=== PATIENT | female | born 1940 | race Caucasian/White ===

== ENCOUNTER 2016-12-20 08:44 | Day surgery (SDC) | payer MEDICARE ==
[~2016-12-20] VITALS: Ht 162.6 cm; Wt 60.0 kg
[2016-12-20 10:02] VITALS: BP 145/68; PULSE 78; RESP 20; TEMP 97.7; O2SAT 93
[2016-12-20] MEDS ORDERED: TEMA15CA PO (10:26)
[2016-12-20] MEDS ORDERED: TELM5TAB PO (10:26)
[2016-12-20] MEDS ORDERED: GABA300C5 PO (10:26)
[2016-12-20] MEDS ORDERED: LORA1TAB12 PO (10:26)
[2016-12-20] MEDS ORDERED: HYDR-3583 PO (10:26)
[2016-12-20] MEDS ORDERED: MORP1TAB25 PO (10:26)
[2016-12-20] MEDS ORDERED: AMLO10TA2 PO (10:26)
[2016-12-20 10:46] LABS: AUTOMATED NEUTROPHIL # 3.9 TH/MM3 (1.8-7.7); BASOPHIL % 0.2 % (0.0-2.0); EOSINOPHIL % 0.7 % (0.0-4.0); HEMATOCRIT 42.8 % (35.0-46.0); HEMO FLAGS DIFF FINAL; LYMPH % 31.9 % (9.0-44.0); MEAN CELL VOLUME 90.1 FL (80.0-100.0); MEAN CORPUSCULAR HEMOGLOBIN 29.6 PG (27.0-34.0); MEAN CORPUSCULAR HGB CONC 32.8 % (32.0-36.0); MONO % 5.2 % (0.0-8.0); PLATELET COUNT 183 TH/MM3 (150-450); RED BLOOD COUNT 4.75 MIL/MM3 (4.00-5.30); RED CELL DISTRIBUTION WIDTH 12.2 % (11.6-17.2); WHITE BLOOD COUNT 6.2 TH/MM3 (4.0-11.0)
[2016-12-20 10:54] LABS: APTT (PATIENT) 27.8 SEC (24.3-30.1); PROTHROMBIN TIME - PATIENT 10.8 SEC (9.8-11.6)
[2016-12-20] MEDS ORDERED: SODIUM CHLOR 0.9% 1000 ML INJ 1,000 ML IV SCH (11:00)
[2016-12-20] MEDS ORDERED: LIDOCAINE 1%/EPINEPHrine 1:100,000 SOLN 20 ML VIAL ONE (11:36)
[2016-12-20] MEDS ORDERED: MIDAZOLAM HCL 5 MG/5 ML VIAL ONE (11:57)
[2016-12-20] MEDS ORDERED: fentaNYL CITRATE 250 MCG/5 ML AMP ONE (11:57)
[2016-12-20 12:55] VITALS: BP 131/63; PULSE 76; RESP 18; TEMP 97.5; O2SAT 95
[2016-12-20 13:10] VITALS: BP 143/103; PULSE 87; RESP 18; O2SAT 91
[2016-12-20 13:40] VITALS: BP 130/63; PULSE 75; RESP 18; O2SAT 91
[2016-12-20 14:10] VITALS: BP 142/65; PULSE 78; RESP 16; O2SAT 91
--- NOTE | 2016-12-20 14:33 | RADRPT ---
EXAM DATE/TIME: 12/20/2016 12:21 [facility] COMPARISON: No previous studies available for comparison. INDICATIONS : Pelvic mass. SEDATION TIME: 30 minutes BIOPSY SITE: Pelvis MEDICATION(S): 1.) 3 mg midazolam (Versed) IV 2.) 150 mcg fentanyl (Sublimaze) IV DEVICE(S): 1.) 18 gauge BioPince needle MEDICAL HISTORY : None. SURGICAL HISTORY : Cholecystectomy Hysterectomy. ENCOUNTER: Initial ACUITY: 1 day PAIN SCORE: 0/10 LOCATION: Pelvis A total of one core specimen(s) were obtained and sent to the laboratory for pathologic evaluation. PROCEDURE: 1. CT guided pelvic biopsy. 2. Conscious sedation with continuous EKG and oximetry monitoring. 3. EKG and oximetry remained stable throughout the procedure. Prior to the procedure informed consent was obtained. Any appropriate prior imaging studies were rev iewed. Using automated exposure control and adjustment of the mA and/or kV according to patient size, radiat ion dose was kept as low as reasonably achievable to obtain optimal diagnostic quality images. The site was prepped in a sterile fashion. Full sterile technique was used, including cap, mask, sabrina rile gloves and gown and a large sterile sheet. Hand hygiene and 2% chlorhexidine and/or betadine/al cohol prep was utilized per protocol for cutaneous antisepsis. The skin and subcutaneous tissues wer e infiltrated with local anesthetic solution. Under CT guidance 18 gauge core was obtained and submitted for pathologic evaluation. The patient tolerated the procedure well and there were no complications. The patient was returned to the Radiology Outpatient Unit in stable condition. CONCLUSION: Uncomplicated CT guided biopsy. Heladio Singh MD FACR on December 20, 2016 at 14:31 Board Certified Radiologist. This report was verified electronically.
[2017-01-18] MEDS ORDERED: MAGN500T4 PO (14:18)
[2017-01-18] MEDS ORDERED: MULT1CHW PO (14:18)
[2017-01-18] MEDS ORDERED: VITA100036 PO (14:18)
[2017-01-18] MEDS ORDERED: CALCTAB80 PO (14:18)
[2017-01-18] MEDS ORDERED: LACTCAP8 PO (14:18)
[2017-01-18] MEDS ORDERED: [UNRECOGNIZED DRUG - CODE] PO (14:18)
[2017-01-18] MEDS ORDERED: VITA500T83 PO (14:18)
[2017-01-18] MEDS ORDERED: MILK1CAP PO (14:18)
[2017-01-18] MEDS ORDERED: [UNRECOGNIZED DRUG - OTHER] PO (14:18)
== END 2016-12-20 14:50 | disposition home or self-care (01) ==
LOC: HRAD 08:44 → HRIP 08:45 → HRAD 14:50
PROVIDERS: ATTEND Internal Medicine
DX: R19.00 Intra-abdominal and pelvic swelling, mass and lump, unspecified site (principal); I10 Essential (primary) hypertension
CPT/HCPCS: 49180; 77012; 85025; 85610; 85730; 88305; 88333; 88341; 88342; 99152; J2250; J3010; J7030

== ENCOUNTER → 2017-01-18 | Outpatient (CLI) | payer MEDICARE ==
[~2017-01-18] MED LIST: AMLO10TA2 PO; CALCTAB80 PO; GABA100C4 PO; GABA300C5 PO; HYDR-3583 PO; LACTCAP8 PO; LORA1TAB12 PO; MAGN500T4 PO; MILK1CAP PO; MILK500C2 PO; MORP1TAB25 PO; MULT1CHW PO; OXYC1TAB63 PO; SM M250T PO; TELM5TAB PO; TEMA15CA PO; VITA100036 PO; VITA500T83 PO; [UNRECOGNIZED DRUG - CODE] PO; [UNRECOGNIZED DRUG - OTHER] PO
[2017-01-18 14:04] LABS: BASOPHIL % 0.3 % (0.0-2.0); EOSINOPHIL % 0.6 % (0.0-4.0); HEMATOCRIT 39.4 % (35.0-46.0); HEMO FLAGS DIFF FINAL; LYMPH % 28.5 % (9.0-44.0); LYMPHOCYTE # 1.3 TH/MM3 (1.0-4.8); MEAN CELL VOLUME 91.9 FL (80.0-100.0); MEAN CORPUSCULAR HEMOGLOBIN 30.1 PG (27.0-34.0); MEAN CORPUSCULAR HGB CONC 32.8 % (32.0-36.0); MONO % 5.9 % (0.0-8.0); NEUT % 64.7 % (16.0-70.0); PLATELET COUNT 192 TH/MM3 (150-450); RED BLOOD COUNT 4.28 MIL/MM3 (4.00-5.30); RED CELL DISTRIBUTION WIDTH 13.3 % (11.6-17.2); WHITE BLOOD COUNT 4.7 TH/MM3 (4.0-11.0)
[2017-01-18 14:12] LABS: APTT (PATIENT) 27.9 SEC (24.3-30.1); PROTHROMBIN TIME - PATIENT 10.7 SEC (9.8-11.6)
[2017-01-18 14:31] LABS: ANION GAP 4 MEQ/L (5-15); AST (GOT) 24 U/L (15-37); BLOOD UREA NITROGEN 14 MG/DL (7-18); CHLORIDE 109 MEQ/L (98-107); GLOMERULAR FILTRATION RATE 89 ML/MIN (>89); GLUCOSE,FASTING 105 MG/DL (74-99); POTASSIUM 4.2 MEQ/L (3.5-5.1); SODIUM (NA) 142 MEQ/L (136-145)
[2017-01-18 14:34] LABS: ALKALINE PHOSPHATASE 78 U/L (45-117); ALT (GPT) 16 U/L (10-53); TOTAL BILIRUBIN ADULT 0.9 MG/DL (0.2-1.0)
--- NOTE | 2017-01-18 15:16 | RADRPT ---
EXAM DATE/TIME: 01/18/2017 14:40 [facility] COMPARISON: No previous studies available for comparison. INDICATIONS : Evaluate for pneumonia, pneumothorax, and communicable disease. Pre op for abdominal surgery. MEDICAL HISTORY : None. SURGICAL HISTORY : None. ENCOUNTER: Initial ACUITY: 1 day PAIN SCORE: 0/10 LOCATION: Bilateral chest FINDINGS: PA and lateral views of the chest demonstrate the lungs to be symmetrically aerated without evidence of mass, infiltrate or effusion. The lungs are hyperinflated bilaterally. The cardiomediastinal conto urs are unremarkable. Osseous structures are intact. Scoliotic curvature. CONCLUSION: Hyperinflation suggesting COPD. Brandyn Cedillo Jr., MD on January 18, 2017 at 15:14 Board Certified Radiologist. This report was verified electronically.
--- NOTE | 2017-01-19 15:44 | EKG ---
Date Performed: 01/18/2017 Time Performed: 13:47:36 PTAGE: 76 years EKG: Sinus rhythm RIGHT BUNDLE BRANCH BLOCK ABNORMAL ECG NO PREVIOUS TRACING DOCTOR: Dusty Spence Interpretating Date/Time 01/19/2017 15:37:17
== END ==
LOC: CPRE 13:26
PROVIDERS: ATTEND Obstetrics & Gynecology Gynecologic Oncology
DX: Z01.812 Encounter for preprocedural laboratory examination (principal); Z01.810 Encounter for preprocedural cardiovascular examination; Z01.811 Encounter for preprocedural respiratory examination; R19.09 Other intra-abdominal and pelvic swelling, mass and lump; I45.10 Unspecified right bundle-branch block
CPT/HCPCS: 36415; 71020; 80053; 85025; 85610; 85730; 93005

== ENCOUNTER 2017-02-05 14:14 | Inpatient (IN) | payer MEDICARE ==
[~2017-02-05] VITALS: Ht 163.8 cm; Wt 61.5 kg
[~2017-02-05 14:14] MED LIST changes: -GABA100C4 PO; -GABA300C5 PO; -MAGN500T4 PO; -MILK1CAP PO; -MILK500C2 PO; -OXYC1TAB63 PO; -SM M250T PO; -[UNRECOGNIZED DRUG - CODE] PO
[2017-02-09] MEDS ORDERED: GABA100C4 PO (12:58)
[2017-02-09] MEDS ORDERED: MILK500C2 PO (12:58)
[2017-02-09] MEDS ORDERED: SM M250T PO (12:58)
[2017-02-13] MEDS ORDERED: SODIUM CHLORID 0.9% 500 ML IV PRN (09:00)
[2017-02-13] MEDS ORDERED: LACTATED RINGER'S 1000 ML IV PRN (09:00)
[2017-02-13] MEDS ORDERED: METOPROLOL TARTRATE 25 MG TAB PO PRN (09:00)
[2017-02-13] MEDS ORDERED: CHLORHEXIDINE GLUCONATE 2 % 1 PACK (2 CLOTHS) TOPICAL PRN (09:00)
[2017-02-13] MEDS ORDERED: POVIDONE IODINE 5% (ANTISEPSIS KIT) 4 APPLICATIONS EACH NARE PRN (09:00)
[2017-02-13] MEDS ORDERED: HEPARIN SODIUM - SQ 10,000 UNITS/ML VIAL SQ SCH (09:00)
[2017-02-13] MEDS ORDERED: ceFAZolin 1,000 MG/NS 100 ML IV SCH ×2 (09:00)
[2017-02-13] MEDS ORDERED: INSULIN HUMAN REGULAR 1,000 UNITS/10 ML VIAL SQ PRN (09:00)
[2017-02-13 09:26] VITALS: BP 121/54; PULSE 82; RESP 20; TEMP 99.3; O2SAT 93
[2017-02-13] MEDS ORDERED: FAMOTIDINE 20 MG/2 ML VIAL ONE (10:40)
[2017-02-13] MEDS ORDERED: ONDANSETRON HCL 4 MG/2 ML VIAL IV PUSH ONE (12:00)
[2017-02-13] MEDS ORDERED: LACTATED RINGER'S 1000 ML INJ 2,000 ML IV ONE (12:00)
[2017-02-13] MEDS ORDERED: NEOSTIGMINE 3 MG/3 ML SYR IV ONE (12:00)
[2017-02-13] MEDS ORDERED: PROPOFOL 200 MG/20 ML AMP IV ONE (12:00)
[2017-02-13] MEDS ORDERED: SODIUM CHLORIDE 0.9% FLUSH 10 ML FLUSH IV FLUSH PRN (14:15)
[2017-02-13] MEDS ORDERED: LORazepam 0.5 MG TAB PO PRN (14:15)
[2017-02-13] MEDS ORDERED: ONDANSETRON HCL 4 MG/2 ML VIAL IVP PRN (14:15)
[2017-02-13] MEDS ORDERED: NALOXONE HCL 0.4 MG/ML AMP IV PRN (14:15)
[2017-02-13] MEDS ORDERED: diphenhydrAMINE HCL 25 MG CAP PO PRN (14:15)
[2017-02-13] MEDS ORDERED: oxyCODONE/ACETAMINOPHEN 5 MG/325 MG TAB PO PRN (14:15)
[2017-02-13] MEDS ORDERED: *HYDROmorphone PF 1 MG VIAL PERIprocedural Use ONLY ONE ×2 (14:24→14:49)
[2017-02-13] MEDS ORDERED: DO NOT ADM ANY ANTICOAGULANT DRUGS PRN (14:26)
[2017-02-13] MEDS ORDERED: HYDROmorphone HCL PF 1 MG/ML VIAL ONE (14:35)
[2017-02-13] MEDS ORDERED: MIDAZOLAM HCL 2 MG/2 ML VIAL ONE (14:36)
[2017-02-13] MEDS ORDERED: fentaNYL CITRATE 250 MCG/5 ML AMP ONE (14:37)
[2017-02-13] MEDS ORDERED: MORPHINE SULFATE 4 MG/ML INJ ONE (14:37)
[2017-02-13] MEDS: KETOROLAC TROMETHAMINE 30 MG/ML (IVP) VIAL IVP SCH ×2 (15:00→20:04)
[2017-02-13] MEDS: D5-1/2 NS + KCL 20 MEQ INJ 1,000 ML IV SCH (15:00)
[2017-02-13] MEDS: MORPHINE SULFATE 30 MG/30 ML PCA IV SCH (15:06)
[2017-02-13 16:00] VITALS: BP 144/65; PULSE 99; RESP 18; TEMP 96.3; O2SAT 95
[2017-02-13] MEDS: GABAPENTIN 300 MG CAP PO SCH (17:11)
[2017-02-13 20:00] VITALS: BP 148/64; PULSE 85; RESP 20; TEMP 97.8; O2SAT 95
[2017-02-13] MEDS: SODIUM CHLORIDE 0.9% FLUSH 10 ML FLUSH IV FLUSH SCH (20:04)
[2017-02-13] MEDS: PCA - TOTAL MG MORPHINE DELIVERED PER SHIFT SCH (22:00)
[2017-02-13] MEDS: TEMAZEPAM 15 MG CAP PO PRN (22:05)
[2017-02-14] VITALS (8 sets, daily range): BP systolic 100–120; BP diastolic 46–60; PULSE 79–92; RESP 16–20; TEMP 97–99.1; O2SAT 92–97
[2017-02-14] MEDS: D5-1/2 NS + KCL 20 MEQ INJ 1,000 ML IV SCH ×3 (01:19→22:25)
[2017-02-14] MEDS: KETOROLAC TROMETHAMINE 30 MG/ML (IVP) VIAL IVP SCH ×4 (03:16→20:28)
[2017-02-14] MEDS: PCA - TOTAL MG MORPHINE DELIVERED PER SHIFT SCH ×3 (06:00→22:22)
[2017-02-14] MEDS: MORPHINE SULFATE 30 MG/30 ML PCA IV SCH ×2 (07:21→18:30)
--- NOTE | 2017-02-14 07:41 | PD.ONC.PN ---
Subjective Subjective Remarks POD #1 pt states that she was able to rest last night pain /10 with RN at bedside refilling her BOWLING BALL ASSEMBLER pump pt still getting scheduled Toradol denies any N/V IS reordered for bedside Objective Data Date Time Temp Pulse Resp B/P Pulse Ox O2 Delivery O2 Flow Rate FiO2 02/14/17 07:21 18 02/14/17 06:00 17 02/14/17 04:00 99.1 91 20 115/57 94 02/14/17 00:00 97.0 92 20 120/59 94 02/13/17 22:00 18 02/13/17 20:00 97.8 85 20 148/64 95 02/13/17 17:12 16 02/13/17 16:00 96.3 99 18 144/65 95 02/13/17 15:30 99 16 138/63 95 Nasal Cannula 2 02/13/17 15:06 16 02/13/17 15:00 91 16 141/66 98 Nasal Cannula 3 02/13/17 14:45 103 16 151/71 97 Nasal Cannula 3 02/13/17 14:30 93 16 156/69 97 Nasal Cannula 3 02/13/17 14:22 97.5 111 16 175/81 95 Nasal Cannula 3 02/13/17 09:26 99.3 82 20 121/54 93 Administered Medications Medications (Trade) Dose Ordered Sig/Daniel Route PRN Reason Start Time Stop Time Status Last Admin Dose Admin Gabapentin (Neurontin) 300 mg TID PO 02/13/17 18:00 02/13/17 17:11 Temazepam 15 mg 15 mg HS PRN PO INSOMNIA 02/13/17 21:00 02/13/17 22:05 Potassium Chloride/Dextrose/ Sod Cl (D5-1/2 NS + KCl 20 Meq Inj) 1,000 ml @ 100 mls/hr Q10H IV 02/13/17 15:00 02/14/17 01:19 Sodium Chloride (NS Flush) 2 ml BID IV FLUSH 02/13/17 21:00 02/13/17 20:04 Ketorolac Tromethamine (Toradol Inj) 15 mg Q6H IVP 02/13/17 15:00 02/16/17 09:01 02/14/17 03:16 Ondansetron HCl (Zofran Inj) 4 mg Q6H PRN IVP NAUSEA OR VOMITING 02/13/17 14:15 02/13/17 15:46 Lorazepam (Ativan) 0.5 mg Q8H PRN PO ANXIETY 02/13/17 14:15 02/13/17 17:11 Morphine Sulfate (Morphine 1 Mg/ ml BOWLING BALL ASSEMBLER) 30 mg UNSCH IV 02/13/17 14:15 02/14/17 07:21 BOWLING BALL ASSEMBLER Dosage Infused (Pha) 1 Q8HR .XX 02/13/17 22:00 02/14/17 06:00 Objective Remarks GENERAL: Well-nourished, well-developed patient. SKIN: Warm and dry. HEAD: Normocephalic. EYES: No scleral icterus. No injection or drainage. CARDIOVASCULAR: Regular rate and rhythm without murmurs. RESPIRATORY: Breath sounds equal bilaterally. No accessory muscle use. GASTROINTESTINAL: Abdomen soft, dressing is c/d/i EXTREMITIES: teds and scds MUSCULOSKELETAL: Adequate muscle tone. NEUROLOGICAL: No obvious focal deficit. Awake, alert, and oriented x3. PSYCHIATRIC: Appropriate mood and affect; insight and judgment normal. Assessment/Plan Problem List: (1) Adenocarcinoma Status: Acute Plan: POD #2 S/P Xlap with BSO, omentectomy and resection of pelvic masses final pathology is pending (2) Post-op pain Status: Acute Plan: BOWLING BALL ASSEMBLER pump scheduled Toradol (3) Postoperative state Status: Acute Plan: will ADAT OOB to chair today IS to bedside (reordered) D/C gagandeep on POD #2 labs pending Bethany Vargas February 14, 2017 07:41
[2017-02-14] MEDS: GABAPENTIN 300 MG CAP PO SCH ×3 (08:48→18:21)
[2017-02-14] MEDS: LOSARTAN 25 MG TAB PO SCH (08:59)
[2017-02-14 09:38] LABS: AUTOMATED NEUTROPHIL # 4.1 TH/MM3 (1.8-7.7); BASOPHIL % 0.1 % (0.0-2.0); EOSINOPHIL % 0.2 % (0.0-4.0); HEMATOCRIT 29.1 % (35.0-46.0); HEMO FLAGS DIFF FINAL; LYMPH % 18.7 % (9.0-44.0); LYMPHOCYTE # 1.1 TH/MM3 (1.0-4.8); MEAN CELL VOLUME 91.3 FL (80.0-100.0); MEAN CORPUSCULAR HEMOGLOBIN 29.9 PG (27.0-34.0); MEAN CORPUSCULAR HGB CONC 32.8 % (32.0-36.0); MONO % 10.6 % (0.0-8.0); NEUT % 70.4 % (16.0-70.0); PLATELET COUNT 188 TH/MM3 (150-450); RED BLOOD COUNT 3.19 MIL/MM3 (4.00-5.30); RED CELL DISTRIBUTION WIDTH 12.8 % (11.6-17.2); WHITE BLOOD COUNT 5.8 TH/MM3 (4.0-11.0)
--- NOTE | 2017-02-14 10:06 | MP ---
cc: KATE ALEXANDER M.D., KELLY L. MD DATE OF SURGERY: 02/13/2017 PREOPERATIVE DIAGNOSIS 1. Large complex pelvic mass, omental tumor, carcinomatous implants and ascites, all suspicious of ovarian cancer. 2. Status post previous hysterectomy. POSTOPERATIVE DIAGNOSIS 1. Large complex pelvic mass, omental tumor, carcinomatous implants and ascites, all suspicious of ovarian cancer. 2. Status post previous hysterectomy. 3. Extensive intrapelvic, intraperitoneal adhesions. PROCEDURE Exploratory laparotomy, bilateral salpingo-oophorectomy (en bloc resection of bilateral ovarian tumors), bilateral ureterolysis, omentectomy, tumor debulking. SURGEON Rosi Del Rio. AFTER SCHOOL COORDINATOR [place] Manager [employer]. ANESTHESIA General endotracheal. ESTIMATED BLOOD LOSS 500 cc. ASCITES 2100 cc including bloody ascites. IV FLUIDS 3000 cc. URINE OUTPUT 350 cc. HISTORY A 76-year-old female found on exam and imaging and related symptomatology, abdominal distension mostly in the lower mid abdomen and pelvis, large central complex pelvic mass. The omentum is thickened, appears to be replaced with tumor. There is some nodularity in the peritoneal cavity and ascites. Elevated CA-125 of approximately 2100. All suggestive of ovarian cancer. She was seen and counseled in our office, counseled on multiple occasions via phone, and is seen again in the pre-op holding area where the suspicion for ovarian cancer is discussed. Again it is emphasized that if in fact cancer is confirmed treatment is a combination of surgery and chemotherapy. She continues to state that under no circumstances would she take chemotherapy. Furthermore, given her [employer] bre under no circumstances would she take any blood or blood products. We had a series of discussions regarding the risks of this decision-making and that the aggressive nature of surgery may be reduced in an effort to minimize blood loss. She understands that with ovarian cancer the chance of blood loss is significant. She understands the potential morbidity and even mortality associated with her decision to not take blood products. She understands and wishes to move forward. FINDINGS Upon exploration of the peritoneal cavity, the pelvis is replaced with tumor. It is difficult to identify any obvious ovarian or fallopian tube tissue. The uterus and cervix are surgically absent. The large complex mass occupies the central pelvis and extends from sidewall to sidewall with extrinsic pressure on the bowel, bladder and surrounding structures. There is approximately 2.5 to 3 liters of ascites some of which in the abdomen is bloody. The infracolic omentum is completely replaced with solid tumor. There are some implants in the gastrocolic ligament. The small bowel mesentery has some small diffuse tumor implants. The diaphragm overlying the liver has implants of tumor. 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 At the conclusion of the case the vast majority of tumor had been resected. There persisted, however, implants on the diaphragm and peritoneum, and a nodule near the splenic hilum and near the hepatic edge of approximately 1 cm greatest dimension plus multifocal smaller implants ranging from 2-5 mm throughout the mesentery and surface of the small bowel. STATEMENT OF COMPLEXITY The complexly of this case was significantly increased due to the extensive adhesions. A significant amount of time was spent lysing adhesions, gaining safe access to the pelvis and peritoneal cavity, accomplishing surgical objectives and restoring normal anatomy. Modifier should be applied accordingly. DETAILS OF PROCEDURE The patient was taken to the operating room and placed in dorsal lithotomy position. After general endotracheal anesthesia was administered a timeout was undertaken. The patient was identified by sight recognition and hospital ID [email or web address], and the proposed procedure was reviewed and confirmed. She was carefully positioned in Anirudh stirrups. Her arms were secured out to the sides. She was prepped and draped in sterile fashion. A Girard catheter was placed in the bladder and orogastric tube placed in the stomach on suction. After being draped in sterile fashion, a midline vertical incision was made from the umbilicus down to the symphysis, carried down to the level of the fascia. The fascia was entered. The rectus muscles were in the midline and the peritoneal cavity was entered. A large volume of ascites was present which was suctioned. Sharp dissection was used to free adhesions between the tumor and the anterior abdominal wall as well as from the omental tumor and the anterior abdominal wall to mobilize loops of bowel and to extend the peritoneal incision the length of the skin incision. The anatomy was explored to the extent possible and the first objective was to see if the central pelvic tumor was resectable. The thickened peritoneum and size of the tumor obscured anatomy but the left round ligament was able to be identified, doubly suture ligated and transected. The anterior and portion leafs of the broad ligament were opened. Similarly on the right side the right round ligament was able to be identified, doubly suture ligated and transected, and the anterior and posterior leafs of the broad ligament were opened. It was still due to the size of the tumor difficult to get retroperitoneal and identify structures. There was some fluid leaking from the fluid component of the mass which helped decrease the pressure such that dissection along the left side now would allow identification of the left ureter and the left gonadal vessels. With a right angle clamp, sharp dissection and retraction were able to free the ureter along its course in the pelvis and to free the attachments from the posterolateral aspect of the mass and allow isolation of the infundibulopelvic ligament. The infundibulopelvic ligament was isolated. The intervening peritoneum was opened. The infundibulopelvic ligament was doubly clamped, cut and doubly suture ligated. Sharp dissection and cautery dissection with some blunt dissection were all used to help mobilize the tumor fixed in the posterior cul-de-sac and to free it from its attachments overlying the bladder mucosa until the tumor from the left side could be mobilized. The tumor was contiguous with tumor arising from the right side such that it was impossible to delineate where any normal ovarian tissue or when one tumor ended and the other one started, but clearly both adnexa were completely replaced with tumor and fused as a central complex pelvic mass. Now some additional mobility was gained by freeing the left side such that the right retroperitoneum could be further explored. The right ureter was identified. Similarly a right angle clamp and sharp dissection was used to mobilize the ureter and free it from posterolateral attachment to the right side of the mass as additional adhesions were lysed and the mass was further mobilized allowing identification and isolation of the gonadal vessels. The infundibulopelvic ligament was isolated. The intervening peritoneum was opened. The infundibulopelvic ligament was then doubly clamped, cut and suture ligated. Additional dissection was carried out laterally, posteriorly and distally until the residual utero-ovarian ligament was isolated where it was clamped, cut and suture ligated thereby freeing the pelvic tumor which was sent en bloc to the pathologist for frozen section analysis, showing a high-grade adenocarcinoma. A lap pad was placed in the pelvis to assist in hemostasis. Attention was directed toward the abdomen. There was mobility of the transverse colon that allowed it to be brought down within the surgical field without need to extend the incision. A window was available between the transverse colon and the central portion of the omental tumor. Vascular attachments were isolated, clamped, cut and suture ligated with 2-0 Vicryl sutures and then the dissection was continued along the transverse colon up toward the hepatic flexure carried out in a similar fashion. Nonvascular attachments were taken down with sharp dissection. Vascular attachments isolated, clamped, cut and suture ligated in a stepwise fashion until the right and central portion of the omental tumor had been from the transverse colon. Continuation was carried in the dissection now toward the splenic flexure. Nonvascular attachments were taken down with cautery or sharp dissection. Vascular attachments were isolated, clamped, cut and suture ligated with 2-0 Vicryl sutures. With retraction I continued the dissection toward the splenic flexure until all tumor that was felt safely resectable had been removed. It is noted that in dissection a portion of the gastrocolic ligament was also isolated, clamped, cut and suture ligated to remove tumor during this dissection, and this large tumor that had replaced the omentum was sent for permanent histopathologic analysis. Now review and inspection of the anatomy revealed findings as described above. It was felt that all reasonable surgical objectives in this individual had been completed in that any additional dissection of small volume tumor was felt to quite possibly be associated with morbidity that exceeded benefit, and again postoperatively the importance of chemotherapy will be emphasized to address the remaining disease. The pelvis and abdomen were thoroughly irrigated. Small bleeders were rendered hemostatic with bipolar cautery. The pelvis was re-inspected. The lap pads were removed. Visual and manual inspection reviewed the anatomy, confirmed there were no remaining foreign objects in the peritoneal cavity and preliminary counts were correct. Small bleeders in the pelvis were rendered hemostatic with 3-0 Vicryl suture. The ureters were inspected and isolated. There was good peristalsis of both ureters bilaterally without compromise and satisfactory hemostasis except for generalized oozing from the tumor bed which was addressed with Harlan hemostatic agent and Surgicel in the pelvis and across the transverse colon where the tumor had been resected. Attention was directed toward closing. The abdominal wall was closed with a 0 looped PDS starting at the apices of the incision in a running modified Smead-Patel closure. The sutures met in the midpoint where they were tied securely and the suture knot was inverted and buried below the fascia. The subcutaneous tissue was irrigated. Domi's fascia was re-approximated with 2-0 Vicryl sutures interrupted and then the skin edges were closed with a 3-0 Monocryl running subcuticular. Steri-Strips, dry sterile dressing and paper tape were used over the abdominal incision. Final counts were correct. She was returned to dorsal supine position and was pending reversal of anesthesia when I left the operating room to precede her to the post-anesthesia care unit. MD JAYLA Maldonado/ANAM /8:28 AM /9:40 AM
[2017-02-14 10:52] LABS: POTASSIUM 4.4 MEQ/L (3.5-5.1)
[2017-02-14 11:35] LABS: BICARBONATE 23.1 MEQ/L (21.0-32.0)
[2017-02-14 12:00] LABS: CALCIUM-PROTEIN CORRECTED 8.8 MG/DL (8.5-10.1)
[2017-02-14] MEDS: SODIUM CHLORIDE 0.9% FLUSH 10 ML FLUSH IV FLUSH SCH ×2 (12:58→20:32)
[2017-02-14] MEDS: TEMAZEPAM 15 MG CAP PO PRN (22:22)
[2017-02-15] VITALS (8 sets, daily range): BP systolic 95–124; BP diastolic 46–59; PULSE 74–95; RESP 16–20; TEMP 96.5–99; O2SAT 90–95
[2017-02-15] MEDS: KETOROLAC TROMETHAMINE 30 MG/ML (IVP) VIAL IVP SCH ×4 (03:00→21:00)
[2017-02-15] MEDS: PCA - TOTAL MG MORPHINE DELIVERED PER SHIFT SCH (06:00)
[2017-02-15] MEDS: oxyCODONE/ACETAMINOPHEN 5 MG/325 MG TAB PO PRN ×3 (07:12→21:31)
--- NOTE | 2017-02-15 08:06 | HHI.FF ---
Face to Face Verification Diagnosis: (1) Adenocarcinoma (2) Postoperative state Physical Therapy Order: Evaluate and Treat Occupational Therapy Order: Evaluate and Treat, Improve ADL Home Health Nursing Order: Wound care and dressing changes Instructions: she is s/p X Lap for BSO and resection of pelvic mass. Home Health Aide Order: To Assist In: Bathing and personal care I have seen patient Kya Ewing on 02/15/17. My clinical findings support the need for the requested home health care services because: Limited ability to care for self High risk of falls I certify that my clinical findings support that this patient is homebound because: Post-op weakness Bethany Vargas Feb 15, 2017 08:05
--- NOTE | 2017-02-15 08:26 | PD.ONC.PN ---
Subjective Subjective Remarks POD #3 pt sitting up in chair donis d/c'd and pt has been up to urinate IVF and CRYSTALLIZER OPERATOR have been d/cd she is currently on oral pain meds and they are working to help control her pain pt would like to arrange for HH, she has a at home but she states he can not help her a lot. Objective Data Date Time Temp Pulse Resp B/P Pulse Ox O2 Delivery O2 Flow Rate FiO2 02/15/17 06:00 18 02/15/17 04:00 99.0 95 16 97/54 94 02/15/17 00:17 97.6 79 16 95/46 95 02/14/17 22:22 18 02/14/17 20:00 97.6 87 16 106/46 95 02/14/17 19:30 92 Nasal Cannula 2.00 02/14/17 18:37 18 02/14/17 18:30 18 02/14/17 16:00 98.8 81 18 100/52 95 02/14/17 15:29 18 02/14/17 14:00 18 02/14/17 12:00 97.5 81 18 101/49 95 02/14/17 09:59 97 02/15/17 02/15/17 02/15/17 07:00 15:00 23:00 Intake Total 3996 ml Output Total 1100 ml Balance 2896 ml Result Diagram: 02/14/17 0551 02/14/17 0551 Administered Medications Medications (Trade) Dose Ordered Sig/Daniel Route PRN Reason Start Time Stop Time Status Last Admin Dose Admin Amlodipine Besylate (Norvasc) 10 mg DAILY PO 02/14/17 09:00 02/14/17 08:48 Gabapentin (Neurontin) 300 mg TID PO 02/13/17 18:00 02/14/17 18:21 Temazepam (Restoril) 15 mg HS PRN PO INSOMNIA 02/13/17 21:00 02/14/17 22:22 Losartan Potassium 25 mg 25 mg DAILY PO 02/14/17 09:00 02/14/17 08:59 Potassium Chloride/Dextrose/ Sod Cl (D5-1/2 NS + KCl 20 Meq Inj) 1,000 ml @ 100 mls/hr Q10H IV 02/13/17 15:00 02/14/17 22:25 Sodium Chloride (NS Flush) 2 ml BID IV FLUSH 02/13/17 21:00 02/14/17 20:32 Ketorolac Tromethamine (Toradol Inj) 15 mg Q6H IVP 02/13/17 15:00 02/16/17 09:01 02/15/17 03:00 Oxycodone/ Acetaminophen (Percocet 5-325 Mg) 2 tab Q4H PRN PO PAIN SCALE 6 TO 10 02/13/17 14:15 02/15/17 07:12 Ondansetron HCl (Zofran Inj) 4 mg Q6H PRN IVP NAUSEA OR VOMITING 02/13/17 14:15 02/13/17 15:46 Lorazepam (Ativan) 0.5 mg Q8H PRN PO ANXIETY 02/13/17 14:15 02/13/17 17:11 Morphine Sulfate (Morphine 1 Mg/ ml CRYSTALLIZER OPERATOR) 30 mg UNSCH IV 02/13/17 14:15 02/14/17 18:30 CRYSTALLIZER OPERATOR Dosage Infused (Pha) 1 Q8HR .XX 02/13/17 22:00 02/15/17 06:00 Objective Remarks GENERAL: Well-nourished, well-developed patient. SKIN: Warm and dry. HEAD: Normocephalic. EYES: No scleral icterus. No injection or drainage. CARDIOVASCULAR: Regular rate and rhythm without murmurs. RESPIRATORY: Breath sounds equal bilaterally. No accessory muscle use. GASTROINTESTINAL: Abdomen soft, dressing c/d/i EXTREMITIES: No edema, TEDs MUSCULOSKELETAL: Adequate muscle tone. NEUROLOGICAL: No obvious focal deficit. Awake, alert, and oriented x3. PSYCHIATRIC: Appropriate mood and affect; insight and judgment normal. Assessment/Plan Problem List: (1) Adenocarcinoma Status: Acute Plan: POD #3 S/P Xlap with BSO, omentectomy and resection of pelvic masses final pathology is pending (2) Post-op pain Status: Acute Plan: CRYSTALLIZER OPERATOR pump d/c'd changed to oral pain meds (3) Postoperative state Status: Acute Plan: donis, IVF and CRYSTALLIZER OPERATOR have been stopped will consult case management to arrange HH to help with wound care, and ADLs. +urination and is OOB to chair pt will be d/c'd home in morning ADAT Attending Statement discussed with Dr. Del Rio and he is in agreement with plan of care Bethany Vargas Feb 15, 2017 08:26
[2017-02-15] MEDS: SODIUM CHLORIDE 0.9% FLUSH 10 ML FLUSH IV FLUSH SCH ×2 (09:00→21:01)
[2017-02-15] MEDS: LOSARTAN 25 MG TAB PO SCH (09:00)
[2017-02-15] MEDS: GABAPENTIN 300 MG CAP PO SCH ×3 (09:06→16:24)
[2017-02-15] MEDS: TEMAZEPAM 15 MG CAP PO PRN (21:01)
[2017-02-16] VITALS: BP 101/57; PULSE 75; RESP 16; TEMP 97.4; O2SAT 94
[2017-02-16 01:27] VITALS: O2SAT 92
[2017-02-16] MEDS: oxyCODONE/ACETAMINOPHEN 5 MG/325 MG TAB PO PRN ×3 (02:52→11:19)
[2017-02-16] MEDS: KETOROLAC TROMETHAMINE 30 MG/ML (IVP) VIAL IVP SCH ×2 (02:53→08:46)
[2017-02-16 04:00] VITALS: BP 100/62; PULSE 85; RESP 18; TEMP 98.1; O2SAT 93
[2017-02-16] MEDS ORDERED: OXYC1TAB63 PO (06:56)
[2017-02-16 08:44] VITALS: BP 113/54; PULSE 71; RESP 20; TEMP 97.5; O2SAT 91
[2017-02-16] MEDS: LOSARTAN 25 MG TAB PO SCH (08:45)
[2017-02-16] MEDS: GABAPENTIN 300 MG CAP PO SCH (08:45)
[2017-02-16] MEDS: SODIUM CHLORIDE 0.9% FLUSH 10 ML FLUSH IV FLUSH SCH (08:46)
[2017-02-16 09:23] VITALS: O2SAT 92
--- NOTE | 2017-02-19 08:29 | MD ---
cc: KATE ALEXANDER M.D., KELLY L. MD ADMISSION DATE: 02/13/2017 DISCHARGE DATE: 02/16/2017 PROCEDURE 02/12/2017, exploratory laparotomy, bilateral salpingo-oophorectomy (enbloc resection of central pelvic tumor with bilateral salpingo-oophorectomy), bilateral ureterolysis, omentectomy, tumor debulking, extensive lysis of adhesions. HOSPITAL COURSE She did well in the postoperative period and now on postoperative day #3, she is tolerating oral intake, solid and liquid. Girard catheter is removed. She is voiding without difficulty, hemodynamically stable, pain adequately controlled and seems to be meeting criteria for discharge to home. OBJECTIVE Postop day #1, H&H were 9.5 at 29.1. Electrolytes essentially normal. BUN, creatinine at 6 and 0.48. Fluid balance is adequate. PHYSICAL EXAMINATION VITAL SIGNS: She remains afebrile, pulse 75-88, respirations 16-20, blood pressure 100-124 over 53-62, O2 saturations greater than or equal to 94% while awake which seems consistent with baseline. GENERAL: She is alert and oriented x3, in no acute distress. RESPIRATIONS: Respirations are unlabored. LUNGS: Lungs are clear at apices, mild rales at the bases. CARDIOVASCULAR: Regular rate and rhythm. ABDOMEN: Incision clean and dry. DIRECTOR GENERAL: No bleeding. EXTREMITIES: Nontender. ASSESSMENT Postoperative day #3 doing well in postop recovery. 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 Findings overall are consistent with stage IIIC. Activities, restrictions discussed, medications reviewed. Questions were answered. She expressed good understanding. PLAN Therefore discharge to home. She is to contact our office to schedule follow up in 2 weeks. She is to resume prior medications, she will have a prescription for Percocet. She is to contact our office should she have any questions or problems between now and the time of scheduled followup. MD JAYLA Maldonado/KAMERON /7:01 AM /8:20 AM
== END 2017-02-16 12:02 | disposition home health service (06) | DRG 737 ==
LOC: HSDI 02-13 08:14 → HOCA 02-13 15:56
PROVIDERS: ADMIT Obstetrics & Gynecology Gynecologic Oncology; ATTEND Obstetrics & Gynecology Gynecologic Oncology
PROC: 0UT70ZZ Resection of Bilateral Fallopian Tubes, Open Approach (ICD-10-PCS; 2017-02-13)
PROC: 0DTS0ZZ (ICD-10-PCS; 2017-02-13)
PROC: 0WJJ0ZZ Inspection of Pelvic Cavity, Open Approach (ICD-10-PCS; 2017-02-13)
PROC: 0WJG0ZZ Inspection of Peritoneal Cavity, Open Approach (ICD-10-PCS; 2017-02-13)
PROC: 0UT20ZZ Resection of Bilateral Ovaries, Open Approach (ICD-10-PCS; principal; 2017-02-13 11:03)
DX: C56.9 Malignant neoplasm of unspecified ovary (principal); C78.6 Secondary malignant neoplasm of retroperitoneum and peritoneum; R18.8 Other ascites; C78.4 Secondary malignant neoplasm of small intestine; C78.89 Secondary malignant neoplasm of other digestive organs; C79.89 Secondary malignant neoplasm of other specified sites; Z90.710 Acquired absence of both cervix and uterus; N73.6 Female pelvic peritoneal adhesions (postinfective); Z53.1 Procedure and treatment not carried out because of patient's decision for reasons of belief and group pressure; G89.18 Other acute postprocedural pain
CPT/HCPCS: 80048; 84155; 85025; 88112; 88305; 88307; 88331; 94150; J0690; J1170; J1644; J1885; J2250; J2270; J2405; J2710; J3010; J3480; J7120